=== PATIENT | female | born 1975 | race Caucasian/White ===

== ENCOUNTER 2016-11-01 21:00 | Emergency (ER) | payer MEDICARE ==
--- NOTE | 2016-11-01 22:02 | RAD ---
HISTORY: Chest pain COMPARISONS: March 02, 2016 VIEWS:1: Single frontal portable view of the chest at 9:45 PM FINDINGS: LINES AND TUBES: None. CARDIOMEDIASTINAL SILHOUETTE: The cardiomediastinal silhouette is normal for portable technique. PLEURA: The costophrenic angles are sharp. No pleural abnormalities are noted. LUNG PARENCHYMA: The lungs are clear. ABDOMEN: The upper abdomen is clear. There is no subphrenic gas. BONES AND SOFT TISSUES: No bone or soft tissue abnormalities are noted. IMPRESSION: NO ACTIVE CARDIOPULMONARY DISEASE.
[2016-11-01 22:59] LABS: Hematocrit 41 % (35-47); Hemoglobin 13.4 g/dl (12.0-16.0); Mean Corpuscular HGB Conc 33 g/dl (31-36); Mean Corpuscular Hemoglobin 30 pg (27-31); Mean Corpuscular Volume 90 fL (80-97); Mean Platelet Volume 10 um3 (7.4-10.4); Red Cell Distribution Width 13 % (10.5-15); White Blood Count 9.5 10^3/ul (3.5-10.8)
[2016-11-01 23:15] LABS: BUN/Creatinine Ratio 17.1 (8-20); Calcium 9.4 mg/dL (8.6-10.3); EGFR African American 108.4 (>60); EGFR Non-African American 84.3 (>60); Globulin 2.7 g/dL (2-4); Magnesium 2.1 mg/dL (1.9-2.7); Potassium 3.6 mmol/L (3.5-5.0); Total Bilirubin 0.3 mg/dL (0.2-1.0); Total Protein 6.7 g/dL (6.4-8.9)
[2016-11-01 23:53] LABS: TSH (Thyroid Stimulating Horm) 1.66 mcIU/mL (0.34-5.60)
[2016-11-02 00:38] VITALS: BP 132/72
== END 2016-11-02 00:37 | disposition home or self-care (01) ==
LOC: ED 21:00
DX: R07.9 Chest pain, unspecified (principal)
CPT/HCPCS: 36415; 71010; 80053; 83605; 83735; 84443; 84484; 85025; 93005; 99283

== ENCOUNTER 2018-10-25 07:50 | Emergency (ER) | payer MEDICAID, MEDICARE ==
[2018-10-25 08:08] VITALS: BP 146/93
--- NOTE | 2018-10-25 09:15 | ED ---
GI/ HPI - HPI Summary HPI Summary: 43 yo WF c/o dysuria, lower abd pressure x 3 days, denies LBP or f/c - History of Current Complaint Chief Complaint: UCGU Time Seen by Provider: 10/25/18 08:12 Stated Complaint: PAIN WITH URINATION Hx Obtained From: Patient Hx Last Menstrual Period: two weeks ago Onset/Duration: Started Days Ago Timing: Lasting Days Severity: Moderate Current Severity: Moderate Pain Intensity: 99 - Allergy/Home Medications Allergies/Adverse Reactions: Allergies Allergy/AdvReac Type Severity Reaction Status Date / Time azithromycin [From Zithromax] Allergy Stomach Verified 10/25/18 07:59 Cramps codeine Allergy Headache Verified 10/25/18 07:59 Home Medications: Home Medications FLUoxetine CAP* [Prozac CAP*] 20 mg PO DAILY 10/25/18 [History Confirmed ] Ranitidine TAB (NF) [Zantac TAB (NF)] 150 mg PO DAILY 10/25/18 [History Confirmed 10/25/18] PMH/Surg Hx/FS Hx/Imm Hx Previously Healthy: Yes Endocrine/Hematology History: Denies: Hx Diabetes, Hx Thyroid Disease Cardiovascular History: Denies: Hx Hypertension Respiratory History: Reports: Hx Asthma - EXERCISE INDUCED Denies: Hx Chronic Obstructive Pulmonary Disease (COPD) GI History: Denies: Hx Ulcer - Surgical History Surgery Procedure, Year, and Place: TONSILLECTOMY 5 YEARS AGO. C SECTION X2. SINUS SURG 3 YEARS AGO. TUBAL - Immunization History Date of Tetanus Vaccine: Unk Date of Influenza Vaccine: Fall 2013 Infectious Disease History: No Infectious Disease History: Denies: Hx Hepatitis, Hx Human Immunodeficiency Virus (HIV), Traveled Outside the [place] in Last 30 Days - Family History Known Family History: Positive: Cardiac Disease - GRANDMOTHER, NOT PARENTS - Social History Alcohol Use: Occasionally Hx Substance Use: No Substance Use Type: Reports: None Hx Tobacco Use: Yes Smoking Status (MU): Current Some Day Smoker Type: Cigarettes Amount Used/How Often: social Have You Smoked in the Last Year: Yes Review of Systems - ROS Summary Review of Systems Summary: Constitutional: Negative Eyes: Negative ENT: Negative Cardiovascular: Negative Respiratory: Negative Gastrointestinal: Negative Genitourinary: SEE HPI Musculoskeletal: Negative Neurological: Negative Psychological: Normal All Other Systems Reviewed And Are Negative: Yes All Other Systems Reviewed And Are Negative: Yes Physical Exam - Summary Physical Exam Summary: Triage Information Reviewed: Yes Appearance: No Pain Distress Eye Exam: Normal ENT Exam: Normal ENT: Positive: Normal ENT inspection Neck: Positive: Supple Respiratory: Positive: Lungs clear, Normal breath sounds Cardiovascular: Positive: RRR, S1, S2 Abdominal Exam: suprapubic pressure, NEG CVA tenderness Musculoskeletal Exam: Normal Neurological Exam: Normal Psychological Exam: Normal Skin Exam: Normal Vital Signs On Initial Exam: Initial Vitals Temp Pulse Resp BP Pulse Ox 37.3 C 84 18 146/93 99 10/25/18 08:04 10/25/18 08:04 10/25/18 08:04 10/25/18 08:04 10/25/18 08:04 Diagnostics - Vital Signs Vital Signs Temp Pulse Resp BP Pulse Ox 10/25/18 08:04 37.3 C 84 18 146/93 99 - Laboratory Lab Results: Lab Results 10/25/18 Range/Units 08:17 POC Urine Color Yellow POC Urine Clarity Clear POC Urine pH 7.0 (5-9) POC Ur Specif Hext <= 1.005 L (1.010-1.030) POC Urine Protein Negative (Negative) POC Ur Glucose (UA) Negative (Negative) POC Urine Ketones Negative (Negative) POC Urine Blood 1+ A (Negative) POC Urine Nitrite Negative (Negative) POC Urine Bilirubin Negative (Negative) POC Urine Urobilinogen 0.2 (Negative) POC U Leukocyte Esteras 1+ A (Negative) Lab Statement: Any lab studies that have been ordered have been reviewed, and results considered in the medical decision making process. GIGU Course/Dx - Course Course Of Treatment: UA positive for LE and blood- will tx for cystitis, will prescribe Bactrim for UTI and fluconazole for anticipatory/propensity for yeast infection per pt - Diagnoses Provider Diagnoses: Cystitis Discharge - Sign-Out/Discharge Documenting (check all that apply): Patient Departure All imaging exams completed and their final reports reviewed: No Studies - Discharge Plan Condition: Stable Disposition: HOME Prescriptions: Fluconazole 150 MG TAB* [Diflucan 150 MG TAB*] 150 mg PO DAILY 2 Days #2 tablet Sulfamethox/Trimethoprim DS* [Bactrim DS 800/160 TAB*] 1 tab PO BID 7 Days #14 tab Patient Education Materials: Urinary Tract Infection in Women (ED) Referrals: James Lambert NP [Primary Care Provider] - - Billing Disposition and Condition Condition: STABLE Disposition: Home
--- NOTE | 2018-10-26 15:46 | UC ---
- Progress Note Progress Note: 10/26/2018 Urine culture positive for E.Coli. Pt Rx Bactrim PO which cover it. Still pending final sensitivity report. No change Ro Hoyos PA-C Course/Dx - Diagnoses Provider Diagnoses: Cystitis Discharge - Sign-Out/Discharge Documenting (check all that apply): Post-Discharge Follow Up All imaging exams completed and their final reports reviewed: No Studies - Discharge Plan Condition: Stable Disposition: HOME Prescriptions: Fluconazole 150 MG TAB* [Diflucan 150 MG TAB*] 150 mg PO DAILY 2 Days #2 tablet Sulfamethox/Trimethoprim DS* [Bactrim DS 800/160 TAB*] 1 tab PO BID 7 Days #14 tab Patient Education Materials: Urinary Tract Infection in Women (ED) Referrals: James Lambert NP [Primary Care Provider] - - Billing Disposition and Condition Condition: STABLE Disposition: Home
--- NOTE | 2018-10-27 15:21 | UC ---
- Progress Note Progress Note: + E. Coli On Bactrim + sensitive no change natividadj 10/27/18 Course/Dx - Diagnoses Provider Diagnoses: Cystitis Discharge - Sign-Out/Discharge Documenting (check all that apply): Post-Discharge Follow Up All imaging exams completed and their final reports reviewed: No Studies - Discharge Plan Condition: Stable Disposition: HOME Prescriptions: Fluconazole 150 MG TAB* [Diflucan 150 MG TAB*] 150 mg PO DAILY 2 Days #2 tablet Sulfamethox/Trimethoprim DS* [Bactrim DS 800/160 TAB*] 1 tab PO BID 7 Days #14 tab Patient Education Materials: Urinary Tract Infection in Women (ED) Referrals: James Lambert NP [Primary Care Provider] - - Billing Disposition and Condition Condition: STABLE Disposition: Home
== END 2018-10-25 09:12 | disposition home or self-care (01) ==
LOC: UCEAST 07:50
DX: N30.90 Cystitis, unspecified without hematuria (principal); J45.998 Other asthma; F17.210 Nicotine dependence, cigarettes, uncomplicated; Z88.1 Allergy status to other antibiotic agents; Z88.5 Allergy status to narcotic agent
CPT/HCPCS: 81003; 87077; 87086; 87186; 99212; G0463

== ENCOUNTER 2018-12-14 07:47 | Emergency (ER) | payer MEDICAID, MEDICARE ==
[2018-12-14 07:58] VITALS: BP 124/79
--- NOTE | 2018-12-14 08:12 | UC ---
Complaint Female HPI - HPI Summary HPI Summary: CHIEF COMPLAINT and HPI: This is a 43-year-old female with a complaint of dysuria for 2 days. Pain is described as discomfort is described as 5/10, in the area of the bladder. There is no radiation to the kidneys and the patient denies CVA tenderness. VITAL SIGNS & SaO2 REVIEWED. Within normal limits unless noted. Patient's blood pressure is 124/79. She has no history of hypertension and is not taking antihypertensive medications. Patient is urgent or emergent, and this is probably the reason for her elevated blood pressure. However, she will recheck her blood pressure with her provider over the next month. NURSES NOTE REVIEWED. - History Of Current Complaint Chief Complaint: UCGU Stated Complaint: POSSIBLE UTI Time Seen by Provider: 12/14/18 08:02 Hx Last Menstrual Period: 11/21/18 Pain Intensity: 5 - Allergies/Home Medications Allergies/Adverse Reactions: Allergies Allergy/AdvReac Type Severity Reaction Status Date / Time azithromycin [From Zithromax] Allergy Stomach Verified 12/14/18 07:58 Cramps codeine Allergy Headache Verified 12/14/18 07:58 Home Medications: Home Medications [place]-3 Fatty Acids/Fish Oil [[place] 3 1,000 mg Softgel] 1 cap PO DAILY 12/14/18 [History Confirmed 12/14/18] PMH/Surg Hx/FS Hx/Imm Hx - Additional Past Medical History Additional PMH: PAST MEDICAL HISTORY- exercise-induced asthma. CHRONIC and RECURRENT HEALTH PROBLEM LIST REVIEWED. Information relevant to present complaint: Patient has had a tubal ligation and 2 C-sections. VISIT HISTORY REVIEWED: Previous visit for dysuria. MEDICATIONS & ALLERGIES REVIEWED. HYPERTENSION STATUS: Not taking antihypertensive medications. FAMILY HISTORY: Positive for cancer, hypertension. SOCIAL HISTORY: Former smoker; stopped smoking 2 years ago; lives with family, and is on disability for chronic fatigue syndrome.. Previously Healthy: Yes - Surgical History Surgical History: Yes Surgery Procedure, Year, and Place: TONSILLECTOMY 5 YEARS AGO. C SECTION X2. SINUS SURG 3 YEARS AGO. TUBAL - Family History Known Family History: Positive: Cardiac Disease - GRANDMOTHER, NOT PARENTS - Social History Alcohol Use: Occasionally Substance Use Type: None Smoking Status (MU): Former Smoker Type: Cigarettes Amount Used/How Often: social Have You Smoked in the Last Year: Yes Household Exposure Type: Cigarettes Review of Systems All Other Systems Reviewed And Are Negative: Yes Constitutional: Positive: Negative Respiratory: Positive: Negative. Negative: Shortness Of Breath Cardiovascular: Positive: Negative. Negative: Palpitations Gastrointestinal: Positive: Negative. Negative: Abdominal Pain Genitourinary: Positive: Dysuria - 2 days Is Patient Immunocompromised?: No Physical Exam - Summary Physical Exam Summary: Appearance: The patient is well-appearing, is in no pain or distress, and is well-nourished. Eyes: Conjunctiva are clear. Pupils are equal and reactive to light and accommodation. Extra ocular muscle movement is intact. ENT: The hearing is grossly normal, the pharynx is normal, and the TMs are normal. There is no muffled or hoarse voice. No stridor. Neck: The neck is supple and there is no lymphadenopathy. Respiratory: The chest is non-tender to palpation and without crepitus. The lungs are clear, there are normal breath sounds, and there is no respiratory distress. No wheezes, rales or rhonchi. Cardiovascular: Heart sounds reveal a regular rate and rhythm. There are no clicks, rubs or murmurs. There are no carotid bruits or thrills. Circulation is grossly intact. Abdomen: The abdomen is soft and nontender. There is no organomegaly. Bowel sounds are present and within normal limits. No point tenderness at McBurneys point. No CVA tenderness. Mild discomfort to palpation over the bladder. Musculoskeletal: Strength is intact. The patient moves all extremities. Neurological: The patient is alert. Motor and sensory are examination grossly intact. Speech is normal. Psychological: The patient displays age appropriate behavior, and is conversant. GCS=15. Skin: Negative for rashes. Vital Signs: Initial Vital Signs Temp 97.6 F 12/14/18 07:55 Pulse 81 12/14/18 07:55 Resp 16 12/14/18 07:55 BP 124/79 12/14/18 07:55 Pulse Ox 100 12/14/18 07:55 Complaint Female Dx - Course Course Of Treatment: MEDICAL DECISION MAKING and PLAN: This is a 43-year-old female with a complaint of dysuria for 2 days. Pain is described as discomfort is described as 5/10, in the area of the bladder. There is no radiation to the kidneys and the patient denies CVA tenderness. Physical examination shows mild bladder tenderness with palpation. No CVA tenderness. Patient looks healthy and is afebrile. My diagnosis is cystitis. Her UA shows leukocytes and blood. I also spoke to the patient about rechecking her blood pressure over the next month. MEDICATIONS REVIEWED. HYPERTENSION STATUS REVIEWED WITH PATIENT IF blood pressure is above 120/80. Patient is urgent/emergent causing transient blood pressure elevation. Patient will follow up with PMD within 4 weeks for elevated BP. - Differential Dx/Diagnosis Differential Diagnosis/HQI/PQRI: Ureteral Stone, Urinary Tract Infection Provider Diagnosis: Cystitis Discharge - Sign-Out/Discharge Documenting (check all that apply): Patient Departure All imaging exams completed and their final reports reviewed: No Studies - Discharge Plan Condition: Stable Disposition: HOME Prescriptions: Nitrofurantoin Macrocrystals* [Macrodantin*] 100 mg PO BID 5 Days #10 cap MDD 2 Patient Education Materials: Urinary Tract Infection in Women (ED) Referrals: James Lambert FERRY PILOT [Primary Care Provider] - Additional Instructions: WE DISCUSSED: PLEASE SEEK CARE AT THE EMERGENCY DEPARTMENT IF SYMPTOMS WORSEN OR IF NEW SYMPTOMS DEVELOP. FOLLOW UP WITH YOUR PRIMARY CARE PHYSICIAN IF CONDITION CONTINUES BEYOND 3 DAYS WITHOUT IMPROVEMENT. YOUR DIAGNOSIS IS: bladder infection YOUR PRESCRIPTION RECOMMENDATION IS: Macrobid, one pill twice a day for 5 days. OTHER INSTRUCTIONS: Hypertension Discharge Instructions: Your blood pressure reading today was 124/79, indicating HYPERTENSION. Follow- up with your primary care provider within 4 weeks for blood pressure check, as we discussed. - Billing Disposition and Condition Condition: STABLE Disposition: Home
== END 2018-12-14 08:25 | disposition home or self-care (01) ==
LOC: UCEAST 07:47
DX: N30.91 Cystitis, unspecified with hematuria (principal); R03.0 Elevated blood-pressure reading, without diagnosis of hypertension; J45.990 Exercise induced bronchospasm; R53.82 Chronic fatigue, unspecified; Z88.1 Allergy status to other antibiotic agents; Z88.5 Allergy status to narcotic agent; Z87.891 Personal history of nicotine dependence
CPT/HCPCS: 81003; 87077; 87086; 87186; 99212; G0463

== ENCOUNTER 2019-01-06 08:57 | Emergency (ER) | payer MEDICARE ==
[2019-01-06 09:08] VITALS: BP 120/79
--- NOTE | 2019-01-06 09:29 | UC ---
Complaint Female HPI - HPI Summary HPI Summary: 43-year-old female with history of urinary tract infections presents with UTI symptoms since yesterday. She states that she is having and urinary discomfort/ burning and mild suprapubic discomfort. She denies any hematuria but states that she is on her menses. She has had 2 other urinary tract infection since October. She denies any fever, backaches, nausea or vomiting or abdominal pain. - History Of Current Complaint Chief Complaint: UCGU Stated Complaint: URINE ISSUES Time Seen by Provider: 01/06/19 09:00 Hx Obtained From: Patient Hx Last Menstrual Period: 11/21/18 Pain Intensity: 5 - Allergies/Home Medications Allergies/Adverse Reactions: Allergies Allergy/AdvReac Type Severity Reaction Status Date / Time azithromycin [From Zithromax] Allergy Stomach Verified 01/06/19 09:08 Cramps codeine Allergy Headache Verified 01/06/19 09:08 PMH/Surg Hx/FS Hx/Imm Hx Previously Healthy: Yes - UTI - Surgical History Surgical History: Yes Surgery Procedure, Year, and Place: TONSILLECTOMY 5 YEARS AGO. C SECTION X2. SINUS SURG 3 YEARS AGO. TUBAL - Family History Known Family History: Positive: Cardiac Disease - GRANDMOTHER, NOT PARENTS - Social History Alcohol Use: Occasionally Substance Use Type: None Smoking Status (MU): Former Smoker Type: Cigarettes Amount Used/How Often: social Have You Smoked in the Last Year: Yes Household Exposure Type: Cigarettes Review of Systems All Other Systems Reviewed And Are Negative: Yes Constitutional: Negative: Fever Skin: Positive: Negative Respiratory: Positive: Negative Cardiovascular: Positive: Negative Gastrointestinal: Negative: Abdominal Pain, Vomiting, Nausea Genitourinary: Positive: Dysuria, Frequency. Negative: Urgency Musculoskeletal: Positive: Negative Physical Exam Triage Information Reviewed: Yes Appearance: Well-Appearing, No Pain Distress, Well-Nourished Vital Signs: Initial Vital Signs Temp 98.1 F 01/06/19 09:05 Pulse 82 01/06/19 09:05 Resp 18 01/06/19 09:05 BP 120/79 01/06/19 09:05 Pulse Ox 100 01/06/19 09:05 Vital Signs Reviewed: Yes Eye Exam: Normal ENT: Positive: Hearing grossly normal Neck: Positive: Supple Respiratory: Positive: Lungs clear Cardiovascular: Positive: RRR Abdomen Description: Positive: Nontender, Soft Musculoskeletal: Positive: Strength Intact, Other: - No CVA tenderness Skin Exam: Normal Complaint Female Dx - Course Course Of Treatment: Unable to collect urine as the patient had her menses and gave a sample that was grossly bloody. She states that her urine is not bloody but she contaminated this with menstrual bleeding. A urine culture was sent. We will start her presumptively on Keflex and Pyridium. She can follow-up with her outpatient practitioner. - Differential Dx/Diagnosis Differential Diagnosis/HQI/PQRI: Renal Colic, Urinary Tract Infection Provider Diagnosis: Urinary tract infection Discharge - Sign-Out/Discharge Documenting (check all that apply): Patient Departure All imaging exams completed and their final reports reviewed: No Studies - Discharge Plan Condition: Improved Disposition: HOME Prescriptions: Cephalexin CAP* [Keflex CAP*] 500 mg PO TID #21 cap Phenazopyridine 200 mg (NF) [Pyridium 200 MG tab *] 200 mg PO TID #9 tab Patient Education Materials: Urinary Tract Infection in Women (ED) Referrals: James Lambert NP [Primary Care Provider] - Additional Instructions: Stay well-hydrated. Cranberry may help. Tylenol, ibuprofen for discomfort. Return with fever, back pains, vomiting, worse or other concerns. - Billing Disposition and Condition Condition: IMPROVED Disposition: Home
== END 2019-01-06 09:31 | disposition home or self-care (01) ==
LOC: UCEAST 08:57
DX: N39.0 Urinary tract infection, site not specified (principal); Z87.440 Personal history of urinary (tract) infections; Z87.891 Personal history of nicotine dependence; Z88.5 Allergy status to narcotic agent
CPT/HCPCS: 87086; 99212; G0463